=== PATIENT | male | born 2000 | race African-American/Black ===

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

== ENCOUNTER 2020-07-11 16:08 | Emergency (ER) | payer OTHER ==
[~2020-07-11] VITALS: Ht 182.9 cm; Wt 73.6 kg
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
[2020-07-11] MEDS ORDERED: ALBUTEROL SULFATE 2.5 MG/3 ML NEBU. NEB ONE (16:45)
--- NOTE | 2020-07-11 17:24 | RAD ---
EXAM: PORTABLE CHEST 1V 07/11/2020 4:27 PM CLINICAL INDICATION: Shortness of breath COMPARISON: None TECHNIQUE: AP upright view of the chest FINDINGS: The heart and mediastinum are normal. Lungs are well-expanded and clear. No consolidation, pleural effusion, or pneumothorax. Pulmonary vascularity is normal. The thoracic skeleton is intact. IMPRESSION: Normal chest radiograph. Electronically signed by: Mariana Cr MD (07/11/2020 5:21 PM) [id number]
[2020-07-11] MEDS ORDERED: ALBU2.5V8 IH (17:34)
[2020-07-11 17:35] VITALS: BP 122/67
--- NOTE | 2020-07-14 13:58 | EKG ---
[facility] [address] [place] [address] Test Date: 2020-07-11 Test Time: 16:34:33 Pat Name: CASPER LUNA Department: Room: Gender: M [employer] Clerk: : 2000 Requested By: JUAN DESAI Order Number: [id number] Reading MD: Measurements Intervals [place] Rate: 88 P: 62 ND: 192 QRS: 90 QRSD: 82 T: 34 QT: 342 QTc: 417 Interpretive Statements SINUS RHYTHM NO SPECIFIC ECG ABNORMALITIES RI6.01 No previous ECG available for comparison
== END 2020-07-11 17:36 | disposition home or self-care (01) ==
LOC: ER 16:08
DX: R07.89 Other chest pain (principal); R06.02 Shortness of breath; J45.909 Unspecified asthma, uncomplicated; Z87.891 Personal history of nicotine dependence
CPT/HCPCS: 71045; 93005; 94640; 99283; J7613